=== PATIENT | female | born 1995 | race Two or more races ===

== ENCOUNTER 2024-03-26 10:06 | Emergency (ER) | payer MEDICAID, OTHER ==
[~2024-03-26] VITALS: Ht 157.5 cm; Wt 88.0 kg
[2024-03-26 11:04] LABS: Basophils # (auto) 0.1 10 ^3/uL (0-0.2); Basophils % (auto) 0.6 % (0.0-2.0); Eosinophils # (auto) 0.1 10 ^3/uL (0-0.8); Eosinophils % (auto) 1.1 % (0.0-7.0); Hematocrit 40.2 % (36.0-46.0); Hemoglobin 13.8 g/dL (12.2-16.2); Lymphocytes # (auto) 2.5 10 ^3/uL (0.4-5.4); Lymphocytes % (auto) 21.6 % (10.0-50.0); Mean Corpuscular Hemoglobin 27.7 pg (28.0-32.0); Mean Corpuscular Hgb Conc. 34.3 g/dL (32.0-36.0); Mean Corpuscular Volume 80.7 fL (80.0-100.0); Monocytes # (auto) 0.7 10 ^3/uL (0-1.3); Monocytes % (auto) 6.5 % (0.0-12.0); Neutrophils % (auto) 70.2 % (37.0-80.0); Nucleated Red Blood Cells % 0.2 %; Red Blood Cells 4.98 10^6/uL (4.0-5.20); Red Cell Distribution Width 14.2 % (11.8-14.3); White Blood Cell 11.4 10^3/uL (4.4-10.8)
[2024-03-26 11:16] LABS: Alkaline Phosphatase 57 U/L (46-116); Calcium 10.3 mg/dL (8.7-10.4); Carbon Dioxide 23 mmol/L (20-30); Chloride 102 mmol/L (98-107)
[2024-03-26 11:17] LABS: Albumin 5.2 g/dL (3.2-4.8); Anion Gap 12 (5-15); Aspartate Aminotransferase 11 U/L (13-40); Bilirubin, Total 0.5 mg/dL (0.2-1.0); Glucose 91 mg/dL (74-106); Lipase 64 U/L (12-53); Potassium 3.4 mmol/L (3.5-5.1); Sodium 137 mmol/L (136-145); Total Protein 8.7 g/dL (5.7-8.2)
[2024-03-26 11:20] LABS: Alanine Aminotransferase < 9 U/L (7-40); BUN/Creatinine Ratio 6.5 (10.0-20.0); Blood Urea Nitrogen < 5 mg/dL (9-23)
[2024-03-26 11:22] LABS: Urine Bacteria FEW /hpf (None Seen); Urine Blood 1+ /uL (Negative); Urine Clarity Turbid (Clear); Urine Color Yellow (Yellow); Urine Mucus FEW (None Seen); Urine Protein, UAD 1+ (Negative); Urine Specific Gravity 1.023 (1.001-1.035); Urine Urobilinogen Normal (Negative); Urine WBC 3 /hpf (0 - 5)
[2024-03-26] MEDS ORDERED: CEPH500T PO (13:10)
[2024-03-26] MEDS: LACTATED RINGER'S 1,000 ML IV ONE (13:42)
[2024-03-26 13:43] VITALS: BP 115/75; PULSE 97; RESP 17; TEMP 98; O2SAT 100
== END 2024-03-26 15:18 | disposition home or self-care (01) ==
LOC: ER 10:06
DX: O23.41 Unspecified infection of urinary tract in pregnancy, first trimester (principal); R10.2 Pelvic and perineal pain; O21.8 Other vomiting complicating pregnancy; N39.0 Urinary tract infection, site not specified; Z3A.01 Less than 8 weeks gestation of pregnancy
CPT/HCPCS: 36415; 76801; 76817; 80053; 81001; 83690; 84702; 85025; 96360

== ENCOUNTER 2024-08-04 10:10 | Emergency (ER) | payer MEDICAID ==
[~2024-08-04] VITALS: Ht 157.5 cm; Wt 91.3 kg
[~2024-08-04 10:10] MED LIST: CEPH500T PO
[2024-08-04 12:44] VITALS: BP 123/81; PULSE 97; RESP 16; TEMP 98.1; O2SAT 97
[2024-08-04] MEDS: ACETAMINOPHEN 325 MG TAB PO ONE (13:15)
== END 2024-08-04 13:30 | disposition home or self-care (01) ==
LOC: ER 10:10
DX: M72.2 Plantar fascial fibromatosis (principal); Z79.899 Other long term (current) drug therapy
CPT/HCPCS: 73630; 99283; J7030

== ENCOUNTER → 2024-09-21 | Outpatient (CLI) | payer MEDICAID ==
[2024-09-21 13:40] LABS: Eosinophils # (auto) 0.2 10 ^3/uL (0-0.8)
[2024-09-21 13:41] LABS: Alkaline Phosphatase 108 U/L (46-116); Calcium 9.8 mg/dL (8.7-10.4); Carbon Dioxide 20 mmol/L (20-31); Chloride 106 mmol/L (98-107)
[2024-09-21 13:42] LABS: Alanine Aminotransferase < 9 U/L (7-40); Albumin 4.1 g/dL (3.2-4.8); Anion Gap 10 (5-15); Aspartate Aminotransferase 12 U/L (13-40); BUN/Creatinine Ratio 8.2 (10.0-20.0); Basophils # (auto) 0 10 ^3/uL (0-0.2); Basophils % (auto) 0.2 % (0.0-2.0); Bilirubin, Total 0.3 mg/dL (0.2-1.0); Blood Urea Nitrogen 5 mg/dL (9-23); Eosinophils % (auto) 1.4 % (0.0-7.0); Glucose 111 mg/dL (74-106); Hematocrit 33.5 % (36.0-46.0); Lymphocytes % (auto) 17.1 % (10.0-50.0); Mean Corpuscular Hemoglobin 26.6 pg (28.0-32.0); Mean Corpuscular Hgb Conc. 32.9 g/dL (32.0-36.0); Mean Corpuscular Volume 80.9 fL (80.0-100.0); Monocytes # (auto) 0.9 10 ^3/uL (0-1.3); Monocytes % (auto) 7.4 % (0.0-12.0); Neutrophils # (auto) 8.5 10 ^3/uL (1.6-8.6); Neutrophils % (auto) 73.9 % (37.0-80.0); Platelet Count (auto) 263 10^3/uL (140-450); Potassium 4.1 mmol/L (3.5-5.1); Red Blood Cells 4.14 10^6/uL (4.0-5.20); Sodium 136 mmol/L (136-145); Total Protein 6.9 g/dL (5.7-8.2); White Blood Cell 11.6 10^3/uL (4.4-10.8)
[2024-09-21 13:51] LABS: Urine Bacteria FEW /hpf (None Seen); Urine Blood TRACE /uL (Negative); Urine Clarity Clear (Clear); Urine Color Light-Yellow (Yellow); Urine Protein, UAD Negative (Negative); Urine Specific Gravity 1.011 (1.001-1.035); Urine Urobilinogen Normal (Negative); Urine WBC 3 /hpf (0 - 5)
[2024-09-21 13:54] LABS: Protein, Urine 13.6 mg/dL (1-14)
[2024-09-21 13:57] LABS: Creatinine, Urine 64.34 mg/dL (30.0-125.0); Urine Protein/Creatinine Ratio 0.21
== END | disposition home or self-care (01) ==
LOC: LAB 12:48
PROVIDERS: ATTEND Obstetrics & Gynecology
DX: Z34.83 Encounter for supervision of other normal pregnancy, third trimester (principal)
CPT/HCPCS: 36415; 80053; 81001; 82570; 84156; 85025; 87086

== ENCOUNTER 2024-10-01 15:31 | Emergency (ER) | payer MEDICAID ==
[~2024-10-01] VITALS: Ht 157.5 cm; Wt 97.0 kg
[2024-10-01 15:39] VITALS: BP 110/67; PULSE 137; RESP 16; O2SAT 99
[2024-10-01] MEDS ORDERED: PREN-96 PO (17:10)
== END 2024-10-01 16:23 | disposition home or self-care (01) ==
LOC: ER 15:31
DX: O26.893 Other specified pregnancy related conditions, third trimester (principal); R10.2 Pelvic and perineal pain; Z3A.34 34 weeks gestation of pregnancy; Z79.899 Other long term (current) drug therapy

== ENCOUNTER 2024-10-01 15:58 | Observation (INO) | payer MEDICAID ==
[~2024-10-01] VITALS: Ht 157.5 cm; Wt 92.5 kg
[2024-10-01] MEDS ORDERED: PREN-96 PO (17:10)
== END 2024-10-01 17:18 | disposition home or self-care (01) ==
LOC: LDRP 15:58
PROVIDERS: ADMIT Obstetrics & Gynecology; ATTEND Obstetrics & Gynecology
DX: O26.893 Other specified pregnancy related conditions, third trimester (principal); R10.9 Unspecified abdominal pain; Z3A.34 34 weeks gestation of pregnancy; Z79.899 Other long term (current) drug therapy; Z98.890 Other specified postprocedural states
CPT/HCPCS: 59025; 76815; 76817; 81002; 94760; G0378

== ENCOUNTER → 2024-10-13 | Outpatient (CLI) | payer MEDICAID ==
[~2024-10-13] MED LIST changes: +PREN-96 PO
[2024-10-13 09:28] LABS: Basophils # (auto) 0 10 ^3/uL (0-0.2); Basophils % (auto) 0.3 % (0.0-2.0); Eosinophils # (auto) 0.2 10 ^3/uL (0-0.8); Eosinophils % (auto) 1.7 % (0.0-7.0); Hematocrit 32.1 % (36.0-46.0); Hemoglobin 10.5 g/dL (12.2-16.2); Lymphocytes # (auto) 1.9 10 ^3/uL (0.4-5.4); Lymphocytes % (auto) 18.2 % (10.0-50.0); Mean Corpuscular Hemoglobin 25.8 pg (28.0-32.0); Mean Corpuscular Hgb Conc. 32.8 g/dL (32.0-36.0); Mean Corpuscular Volume 78.6 fL (80.0-100.0); Monocytes # (auto) 0.9 10 ^3/uL (0-1.3); Monocytes % (auto) 8.8 % (0.0-12.0); Neutrophils # (auto) 7.5 10 ^3/uL (1.6-8.6); Platelet Count (auto) 243 10^3/uL (140-450); Red Blood Cells 4.08 10^6/uL (4.0-5.20); Red Cell Distribution Width 14.9 % (11.8-14.3); White Blood Cell 10.6 10^3/uL (4.4-10.8)
--- NOTE | 2024-10-13 12:46 | DVHDS2 ---
Physician Discharge Progress N Final Diagnosis: labor check Operations or Procedures: Operations or Procedures nst,sono Condition on Discharge: Good Disposition: Home Discharge Instructions: Diet: Consistent carbohydrate Activity: No Restrictions, As Tolerated Medications: na Follow Up Care: Specialist: 3d Discharge Statement: "Patient was advised to return to the ER or call 911 if any headaches, dizziness, shortness of breath, chest pain, abdominal pain, bleeding, fevers, or worsening of medical condition. Patient was counseled about treatment plan, medications, possible side effects, patientverbalized understanding. All questions were answered to the best of my ability. This discharge took greater then 30 minutes in planning, reviewing documenta tion, counseling the patient, and discussing with other team members." AMARJIT RASMUSSEN DO Oct 13, 2024 12:46
[2024-10-14 08:06] LABS: RPR Non Reactive (Non Reactive)
[2024-10-15 06:07] LABS: Chlamydia Trachomatis, NAA Negative (Negative); Neisseria gonorrhoeae, NAA Negative (Negative)
== END | disposition home or self-care (01) ==
LOC: LAB 09:04
PROVIDERS: ATTEND Obstetrics & Gynecology
DX: Z34.00 Encounter for supervision of normal first pregnancy, unspecified trimester (principal)
CPT/HCPCS: 36415; 85025; 86592

== ENCOUNTER 2024-11-03 10:35 | Inpatient (IN) | payer MEDICAID ==
[~2024-11-03] VITALS: Ht 160 cm; Wt 103.0 kg
[2024-11-03] MEDS ORDERED: DERMOPLAST 60ML BOTTLE TOP PRN (11:15)
[2024-11-03] MEDS ORDERED: LIDOCAINE 2%HCL (LOCAL ANESTH.) INJ 20ML MDV IJ PRN (11:15)
[2024-11-03] MEDS ORDERED: ONDANSETRON HCL 4 MG/2 ML VIAL IV PRN (11:15)
[2024-11-03] MEDS ORDERED: BUTORPHANOL TARTRATE 2 MG/1 ML VIAL IV PRN ×2 (11:15)
[2024-11-03] MEDS ORDERED: PHISODERM TOP SOLN 240ML BTL TOP PRN (11:15)
[2024-11-03] MEDS ORDERED: WITCH HAZEL-GLYCERIN PAD TOP PRN (11:15)
[2024-11-03] MEDS: miSOPROStol 50 MCG per PRE-CUT 1/2 TAB PO PRN (12:36)
[2024-11-03] MEDS: LACTATED RINGER'S 1,000 ML IV SCH (12:37)
--- NOTE | 2024-11-03 12:48 | DVHHP2 ---
OB CC & HPI Date Date of Admission: Nov 03, 2024 Patient Identification: : 2 Para: 1 EDC: Nov 08, 2024 EGA: 39.2wks Chief Complaints: Reason for admission: induction of labor Indication for induction: medical complication (preeclampsia) History of Present Complaints 29yo IUP@39.2wks presents for IOL for preeclampsia. Denies UCs/LOF/VB/KURTZ/vision changes/RUQ pain. Endorses +FM. PNC: Routine PNC at [facility] OB, adequate visits, PNC complicated by iron deficiency anemia. GTT wnl, dating based on 24wk sono, GBS negative. OB hx: x1, uncomplicated Past Medical History Cardiac: No pertinent Hx Pulmonary: No pertinent Hx Central Nervous System: No pertinent Hx GI: No pertinent Hx Hemotology/Oncology: No pertinent Hx Hepatobiliary: No pertinent Hx Psychiatric: No pertinent Hx Musculoskeletal: No pertinent Hx Rheumotologic: No pertinent Hx Infectious Disease: No peritnent Hx ENT: No pertinent Hx Renal/: No pertinent Hx Endocrine: No pertinent Hx Dermatology: No pertinent Hx Past Surgical History: No pertinent Hx OB History OB History Care: Good Care Ultrasounds: Normal mid trimester US Obstetrical Complications: Pre-eclampsia Medical Complications: None Allergies: Coded Allergies: NO KNOWN ALLERGIES (Unverified , 08/04/24) Home Meds Active Scripts Cephalexin Monohydrate (Cephalexin) 500 Mg Tab, 1 TAB PO TID for 7 Days, #21 TAB Prov:MELANIE STEVENSON DO 03/26/24 Reported Medications Vit W/ Ferrous Fumara ( One Daily) Daily Tab, 1 TAB PO DAILY, #90 TAB 3 Refills 10/01/24 Current Medications Current Medications Medications (Trade) Dose Ordered Sig/Dali Route PRN Reason Start Time Stop Time Status Last Admin Lactated Ringer's 1,000 ml @ 125 mls/hr Q8H IV 11/03/24 11:15 11/03/24 12:37 Ananda Vallejo (Tucks) 1 pad PRN PRN TOP PERINEAL AREA DISCOMFORT 11/03/24 11:15 Sodium Lauryl Sulfate (Phisoderm) 240 ml PRN PRN TOP PERINEAL AREA DISCOMFORT 11/03/24 11:15 Benzocaine (Dermoplast) 1 applic PRN PRN TOP PERINEAL AREA DISCOMFORT 11/03/24 11:15 Butorphanol Tartrate (Stadol Injection) 1 mg Q4HPRN PRN IV MODERATE PAIN (4-6 PAIN SCALE) 11/03/24 11:15 Butorphanol Tartrate (Stadol Injection) 2 mg Q4HPRN PRN IV SEVERE PAIN (7-10 PAIN SCALE) 11/03/24 11:15 Misoprostol (Cytotec) 50 mcg Q4HPRN PRN PO CERVICAL RIPENING 11/03/24 11:15 11/03/24 12:36 Lidocaine HCl (Xylocaine) 20 ml ONCE PRN IJ PERINEAL AREA DISCOMFORT 11/03/24 11:15 Ondansetron HCl (Zofran) 4 mg Q4HPRN PRN IV NAUSEA / VOMITING 11/03/24 11:15 Family & Social History Family/Social History Past Family/Social History: denies Blood Type: O+ Rubella: immune RPR/VDRL: Negative GBS Status: Negative HBsAG: Negative Review of Systems Constitutional: No symptom reported Ears, Nose, & Throat: No symptom reported Eyes: No symptom reported Pulmonary/Respiratory: No symptom reported Cardiovascular: No symptom reported Gastrointestinal: No symptom reported Genitourinary: No symptom reported Musculoskeletal: No symptom reported Skin: No symptom reported Psychiatric: No symptom reported Endocrine: No symptom reported Hemotologic/Lymphatic: No symptom reported OB Admission Exam Physical Exam Vitals: VSS EFW in office today: 8lbs, vertex HEENT: TMs Normal, Fontanelles Normal, Nasal Mucosa Normal, Eyes non-injected, Oropharynx Normal, PERRLA, Moist Membranes, EOMI Heart: Rhythm Normal Lungs: Clear Abdomen: Gravid Extremities: Normal Reflexes: Normal Cervical Dilatation: 2cm Effacement: 50% Station: -2 Membranes: Intact Heart Rate: 140's Accelerations: Accelerations Present Decelerations: No Decelerations Usp Variability: Average (6-25) Contractions on Admission: >10 Minutes Apart Intensity: Mild OB Plan Plan Admitting Diagnosis: Induction of labor for preeclampsia Plan: Induction Induction Methd: Misoprostol protocol Other Plan: A: 29yo IUP@39.2wks Induction of Labor Preeclampsia Category I EFM Intact Membranes GBS negative P: Admit to L&D Informed consent obtained Discussed risks, benefits, alternatives of IOL for preeclampsia with pt. Pt consents to IOL with PO cytotec. monitoring per order Routine labs ordered Pain mgmt PRN Frequent position changes in and out of bed encouraged Limit SVE unless necessary Intrauterine resuscitation PRN Anticipate Dr. Mckoy consulted, agrees with POC. PATRICK is co-managing care with Dr. Mckoy. SAIDA FLORES CNM Nov 03, 2024 12:48
[2024-11-03 12:55] LABS: Basophils # (auto) 0 10 ^3/uL (0-0.2); Basophils % (auto) 0.3 % (0.0-2.0); Eosinophils # (auto) 0.1 10 ^3/uL (0-0.8); Eosinophils % (auto) 0.8 % (0.0-7.0); Hematocrit 32.3 % (36.0-46.0); Hemoglobin 10.3 g/dL (12.2-16.2); Lymphocytes # (auto) 1.6 10 ^3/uL (0.4-5.4); Lymphocytes % (auto) 16.2 % (10.0-50.0); Mean Corpuscular Hemoglobin 24.8 pg (28.0-32.0); Mean Corpuscular Hgb Conc. 31.8 g/dL (32.0-36.0); Monocytes # (auto) 0.8 10 ^3/uL (0-1.3); Monocytes % (auto) 8.1 % (0.0-12.0); Neutrophils # (auto) 7.5 10 ^3/uL (1.6-8.6); Neutrophils % (auto) 74.6 % (37.0-80.0); Nucleated Red Blood Cells % 0.1 %; Platelet Count (auto) 215 10^3/uL (140-450); Red Blood Cells 4.14 10^6/uL (4.0-5.20); Red Cell Distribution Width 15.8 % (11.8-14.3)
[2024-11-03 13:07] LABS: INR 0.96 (0.9-1.15); Partial Thromboplastin Time 27.6 SEC (24.5-34.5); Prothrombin Time 10.2 sec (9.3-11.8)
[2024-11-03 13:08] LABS: Albumin 3.6 g/dL (3.2-4.8); Alkaline Phosphatase 163 U/L (46-116); Anion Gap 10 (5-15); Aspartate Aminotransferase 15 U/L (13-40); BUN/Creatinine Ratio 10.9 (10.0-20.0); Blood Urea Nitrogen 7 mg/dL (9-23); Calcium 9.4 mg/dL (8.7-10.4); Carbon Dioxide 21 mmol/L (20-31); Chloride 105 mmol/L (98-107); Glucose 71 mg/dL (74-106); Sodium 136 mmol/L (136-145)
[2024-11-03 13:09] LABS: Alanine Aminotransferase < 9 U/L (7-40); Bilirubin, Total 0.3 mg/dL (0.2-1.0); Total Protein 6.2 g/dL (5.7-8.2)
[2024-11-03 13:23] LABS: Urine Bacteria FEW /hpf (None Seen); Urine Blood TRACE /uL (Negative); Urine Clarity Clear (Clear); Urine Color Light-Yellow (Yellow); Urine Protein, UAD 1+ (Negative); Urine Urobilinogen Normal (Negative); Urine WBC 2 /hpf (0 - 5); Urine pH 6.5 (5.0-9.0)
[2024-11-03 13:41] LABS: Protein, Urine 91.2 mg/dL (1-14)
[2024-11-03 13:44] LABS: Amphetamine Screen, Urine Neg (NEGATIVE); Barbiturate Scree,Urine Neg (NEGATIVE); Benzodiazephine Screen, Urine Neg (NEGATIVE); Cocaine Screen, Urine Neg (NEGATIVE); Creatinine, Urine 66.68 mg/dL (30.0-125.0); Urine Protein/Creatinine Ratio 1.37
[2024-11-03 13:45] LABS: Cannabinoid Screen, Urine Neg (NEGATIVE); Opiate Scree,Urine Neg (NEGATIVE); Phencyclidine Screen, Urine Neg (NEGATIVE)
[2024-11-03 14:30] VITALS: BP 91/77; PULSE 113; RESP 18; TEMP 98.2; O2SAT 98
--- NOTE | 2024-11-03 14:36 | DVHPN2 ---
Chief Complaints Patient reports: No new complaints Nursing reports: No new complaints Objective Medications Current Medications Medications (Trade) Dose Ordered Sig/Dali Route PRN Reason Start Time Stop Time Status Last Admin Benzocaine (Dermoplast) 1 applic PRN PRN TOP PERINEAL AREA DISCOMFORT 11/03/24 11:15 Butorphanol Tartrate (Stadol Injection) 1 mg Q4HPRN PRN IV MODERATE PAIN (4-6 PAIN SCALE) 11/03/24 11:15 Butorphanol Tartrate (Stadol Injection) 2 mg Q4HPRN PRN IV SEVERE PAIN (7-10 PAIN SCALE) 11/03/24 11:15 Lactated Ringer's 1,000 ml @ 125 mls/hr Q8H IV 11/03/24 11:15 11/03/24 12:37 Lidocaine HCl (Xylocaine) 20 ml ONCE PRN IJ PERINEAL AREA DISCOMFORT 11/03/24 11:15 Misoprostol (Cytotec) 50 mcg Q4HPRN PRN PO CERVICAL RIPENING 11/03/24 11:15 11/03/24 12:36 Ondansetron HCl (Zofran) 4 mg Q4HPRN PRN IV NAUSEA / VOMITING 11/03/24 11:15 Sodium Lauryl Sulfate (Phisoderm) 240 ml PRN PRN TOP PERINEAL AREA DISCOMFORT 11/03/24 11:15 Witch Genevieve (Tucks) 1 pad PRN PRN TOP PERINEAL AREA DISCOMFORT 11/03/24 11:15 Others ve-2cm/50/-2 Studies Laboratory Tests 11/03/24 11:50 Test 11/03/24 11:50 Range/Units Serum Glucose 71 L 74-106 mg/dL Ass/Plan Assessment iol for pih Plan rec one cytotec AMARJIT RASMUSSEN DO Nov 03, 2024 14:36
[2024-11-03] MEDS: ROPIVACAINE HCL 200 ML ONE (16:41)
[2024-11-03] MEDS: ePHEDrine SULFATE 50 MG/ML AMP IV ONE (16:45)
[2024-11-03] MEDS: NALOXONE HCL 0.4 MG/ML VIAL IV ONE (16:45)
[2024-11-03] MEDS: LACTATED RINGER'S 1,000 ML IV ONE (16:45)
[2024-11-04] MEDS: LACT. RINGERS/OXYTOCIN 20UNITS 1,000 ML IV SCH (03:58)
[2024-11-04 05:08] LABS: RPR Non Reactive (Non Reactive)
--- NOTE | 2024-11-04 07:33 | DVHPN2 ---
Chief Complaints Patient reports: No new complaints Nursing reports: No new complaints Objective Medications Current Medications Medications (Trade) Dose Ordered Sig/Dali Route PRN Reason Start Time Stop Time Status Last Admin Benzocaine (Dermoplast) 1 applic PRN PRN TOP PERINEAL AREA DISCOMFORT 11/03/24 11:15 Butorphanol Tartrate (Stadol Injection) 1 mg Q4HPRN PRN IV MODERATE PAIN (4-6 PAIN SCALE) 11/03/24 11:15 Butorphanol Tartrate (Stadol Injection) 2 mg Q4HPRN PRN IV SEVERE PAIN (7-10 PAIN SCALE) 11/03/24 11:15 Lactated Ringer's 1,000 ml @ 125 mls/hr Q8H IV 11/03/24 11:15 11/03/24 12:37 Lidocaine HCl (Xylocaine) 20 ml ONCE PRN IJ PERINEAL AREA DISCOMFORT 11/03/24 11:15 Magnesium Sulfate 1,000 ml @ 50 mls/hr Q20H IV 11/04/24 06:00 Misoprostol (Cytotec) 50 mcg Q4HPRN PRN PO CERVICAL RIPENING 11/03/24 11:15 11/03/24 12:36 Ondansetron HCl (Zofran) 4 mg Q4HPRN PRN IV NAUSEA / VOMITING 11/03/24 11:15 Oxytocin 1,000 ml @ 6 ml/hr Q24H IV 11/04/24 02:30 11/04/24 03:58 Sodium Lauryl Sulfate (Phisoderm) 240 ml PRN PRN TOP PERINEAL AREA DISCOMFORT 11/03/24 11:15 Witch Genevieve (Tucks) 1 pad PRN PRN TOP PERINEAL AREA DISCOMFORT 11/03/24 11:15 Others ve-4cm/60/-2 Studies Laboratory Tests 11/03/24 11:50 Test 11/03/24 11:50 Range/Units Serum Glucose 71 L 74-106 mg/dL Ass/Plan Assessment iol for pih Plan cont with pitocin start mg in active labor AMARJIT RASMUSSEN DO Nov 04, 2024 07:33
[2024-11-04] MEDS: MAGNESIUM SULFATE 100 ML IV ONE (09:39)
[2024-11-04] MEDS: MAGNESIUM SULFATE 40MG/ML 1,000 ML IV SCH (09:55)
[2024-11-04] MEDS: LORazepam 2MG/ML-1ML VIAL IV ONE (10:00)
--- NOTE | 2024-11-04 10:45 | LDN2 ---
Labor and Delivery Note Date 11/04/24 Age 29 2 Para 2 EDC 12-8 EGA 39wks Diagnosis induction of labor for pih Vaginal Delivery: VTX Vacuum Assisted: No Placenta: Spontaneous Sex: Female Apgars 8-8 Nuchal Cord Transected: Yes Amniotic Fluid: Clear, Thin Anesthesia epidural Episiotomy: No Extension: Yes (1st dge perineal lac) Repaired with 2-0 chromic EBL 300ml Labs Blood Bank 11/03/24 11:50: Blood Type O POSITIVE Complications none Conditions stable Comments/Significant Med Emre spec exam no cxal lac, AMARJIT RASMUSSEN DO Nov 04, 2024 10:45
[2024-11-04] MEDS: LACT. RINGERS/OXYTOCIN 20UNITS 500 ML IV ONE ×2 (10:57)
[2024-11-04] MEDS ORDERED: ONDANSETRON ODT 4 MG TAB PO PRN (11:15)
[2024-11-04 12:45] VITALS: RESP 18
[2024-11-04] MEDS: ACETAMINOPHEN 325 MG TAB PO PRN (13:24)
[2024-11-04 14:30] VITALS: BP 91/77; PULSE 113; RESP 18; TEMP 98.2; O2SAT 98
--- NOTE | 2024-11-04 16:19 | DVHINCON2 ---
Date Seen: Nov 04, [address] RASMUSSEN Allergies: Coded Allergies: NO KNOWN ALLERGIES (Unverified , 08/04/24) Home Meds Reported Medications Vit W/ Ferrous Fumara ( One Daily) Daily Tab, 1 TAB PO DAILY, #90 TAB 3 Refills 10/01/24 Current Medications Current Medications Medications (Trade) Dose Ordered Sig/Dali Route PRN Reason Start Time Stop Time Status Last Admin Oxytocin 1,000 ml @ 6 ml/hr Q24H IV 11/04/24 02:30 11/04/24 03:58 Magnesium Sulfate 1,000 ml @ 50 mls/hr Q20H IV 11/04/24 06:00 11/04/24 09:55 Ibuprofen (Motrin Tablet) 600 mg Q6HP PRN PO MODERATE PAIN (4-6 PAIN SCALE) 11/04/24 11:15 Acetaminophen (Tylenol Tablet) 650 mg Q4HP PRN PO MILD PAIN (1-3 PAIN SCALE) 11/04/24 11:15 11/04/24 13:24 Ondansetron HCl (Zofran Po) 4 mg Q4HPRN PRN PO NAUSEA / VOMITING 11/04/24 11:15 Vital Signs Vital Signs Date Time Temp Pulse Resp B/P (MAP) Pulse Ox O2 Delivery O2 Flow Rate FiO2 11/04/24 12:45 18 Room Air 11/03/24 14:30 98.2 113 91/77 (82) 98 98.2 Labs/Diagnostic Data Labs Test 11/04/24 15:27 11/03/24 11:50 11/03/24 10:35 Range/Units Magnesium Lvl (Mg Sulfate Therapy) 2.04 L 4.0-7.1 mg/dL White Blood Count 10.0 4.4-10.8 10^3/uL Red Blood Count 4.14 4.0-5.20 10^6/uL Hemoglobin 10.3 L 12.2-16.2 g/dL Hematocrit 32.3 L 36.0-46.0 % Mean Corpuscular Volume 78.0 L 80.0-100.0 fL Mean Corpuscular Hemoglobin 24.8 L 28.0-32.0 pg Mean Corpuscular Hemoglobin Concent 31.8 L 32.0-36.0 g/dL Red Cell Distribution Width 15.8 H 11.8-14.3 % Platelet Count 215 140-450 10^3/uL Mean Platelet Volume 9.0 6.9-10.8 fL Neutrophils (%) (Auto) 74.6 37.0-80.0 % Lymphocytes (%) (Auto) 16.2 10.0-50.0 % Monocytes (%) (Auto) 8.1 0.0-12.0 % Eosinophils (%) (Auto) 0.8 0.0-7.0 % Basophils (%) (Auto) 0.3 0.0-2.0 % Neutrophils # (Auto) 7.5 1.6-8.6 10 ^3/uL Lymphocytes # (Auto) 1.6 0.4-5.4 10 ^3/uL Monocytes # (Auto) 0.8 0-1.3 10 ^3/uL Eosinophils # (Auto) 0.1 0-0.8 10 ^3/uL Basophils # (Auto) 0 0-0.2 10 ^3/uL Nucleated Red Blood Cells 0.1 % Prothrombin Time 10.2 9.3-11.8 sec Prothrombin Time INR 0.96 0.9-1.15 Activated Partial Thromboplast Time 27.6 24.5-34.5 SEC Sodium Level 136 136-145 mmol/L Potassium Level 4.0 3.5-5.1 mmol/L Chloride Level 105 98-107 mmol/L Carbon Dioxide Level 21 20-31 mmol/L Anion Gap 10 5-15 Blood Urea Nitrogen 7 L 9-23 mg/dL Creatinine 0.64 0.550-1.02 mg/dL Glomerular Filtration Rate Calc 123 >90 mL/min BUN/Creatinine Ratio 10.9 10.0-20.0 Serum Glucose 71 L 74-106 mg/dL Uric Acid 11.3 H 3.1-7.8 mg/dL Calcium Level 9.4 8.7-10.4 mg/dL Total Bilirubin 0.3 0.2-1.0 mg/dL Aspartate Amino Transferase (AST) 15 13-40 U/L Alanine Aminotransferase (ALT) < 9 7-40 U/L Alkaline Phosphatase 163 H 46-116 U/L Total Protein 6.2 5.7-8.2 g/dL Albumin 3.6 3.2-4.8 g/dL Rapid Plasma Reagin Non reactive Non Reactive Hepatitis C Antibody Negative Negative Urine Color Light-yellow Yellow Urine Clarity Clear Clear Urine pH 6.5 5.0-9.0 Urine Specific Axson 1.010 1.001-1.035 Urine Protein 1+ H Negative Urine Ketones Negative Negative Urine Blood Trace H Negative /uL Urine Nitrite Negative Negative Urine Bilirubin Negative Negative Urine Urobilinogen Normal Negative mg/dL Urine Leukocyte Esterase 2+ Negative /uL Urine RBC 2 0 - 4 /hpf Urine WBC 2 0 - 5 /hpf Urine Squamous Epithelial Cells Few <5 /hpf Urine Bacteria Few H None Seen /hpf Urine Creatinine 66.68 30.0-125.0 mg/dL Urine Protein/Creatinine Ratio 1.37 Urine Glucose Normal Normal mg/dL Urine Total Protein 91.2 H 1-14 mg/dL Urine Opiates Screen Neg NEGATIVE Urine Fentanyl Screen Neg NEGATIVE Urine Barbiturates Screen Neg NEGATIVE Urine Phencyclidine Screen Neg NEGATIVE Urine Amphetamines Screen Neg NEGATIVE Urine Benzodiazepines Screen Neg NEGATIVE Urine Cocaine Screen Neg NEGATIVE Urine Cannabinoids Screen Neg NEGATIVE Assessment SEE DICTATED NOTE Plan discussed with: Patient Date of Service: Nov 04, 2024 Billing Provider: VALERIY VICKERS MD Common Visit Codes: [id number] INP/OBS CARE (HIGH) VALERIY VICKERS MD Nov 04, 2024 16:19
[2024-11-04 16:53] LABS: Free T3 2.15 pg/mL (2.3-4.2); Free T4 (Free Thyroxine) 0.7 ng/dL (0.89-1.76)
[2024-11-04 19:00] VITALS: BP 135/75; PULSE 93; RESP 18; TEMP 98.2; O2SAT 99
[2024-11-04 22:30] VITALS: BP 123/62; PULSE 85; RESP 16; TEMP 98.1; O2SAT 99
--- NOTE | 2024-11-04 23:07 | DVHINCON2 ---
INTERNAL MEDICINE CONSULT HISTORY OF PRESENT ILLNESS: The patient is a 29-year-old lady who was admitted for and delivery. The patient around the peripartum period was noted to be tachycardic. The patient, however, at this time is asymptomatic. No chest pain or shortness of breath. No nausea or vomiting. REVIEW OF SYSTEMS: The review of rest of systems are otherwise currently negative. PAST MEDICAL HISTORY: The patient has baseline tachycardia with a heart rate usually in the 110-115. She has questionable history of rheumatic fever. MEDICATIONS: She takes no medicine on a regular basis. ALLERGIES: No known drug allergies. SOCIAL HISTORY: Denies smoking or alcohol. FAMILY HISTORY: Negative. PHYSICAL EXAMINATION: GENERAL: The patient is awake, alert. VITAL SIGNS: Temperature of 98.2, pulse 113 per minute, blood pressure 91/77. SHEENT: Unremarkable. NECK: There is no JVD. No pedal edema. LUNGS: Equal bilaterally. No added sounds. CARDIOVASCULAR SYSTEM: S1, S2 is regular. There is tachycardia. ABDOMEN: Soft. There is no organomegaly. NEUROLOGIC: Nonfocal. MUSCULOSKELETAL: Normal. ASSESSMENT AND PLAN: * Tachycardia for which the patient's T3, T4 and TSH will be checked as well as an echocardiogram. * Morbid obesity. * Status post with delivery. Jacob Le MD JLRohith/HEM TID: [id number] RECEIPT: [id number]
[2024-11-05 03:00] VITALS: BP 99/59; PULSE 73; RESP 18; TEMP 98.4; O2SAT 98
[2024-11-05] MEDS: IBUPROFEN 600 MG TAB PO PRN (03:04)
[2024-11-05 07:00] VITALS: BP 95/51; PULSE 63; RESP 18; TEMP 97.7; O2SAT 98
--- NOTE | 2024-11-05 07:02 | DVHPN2 ---
Objective Vitals Vital Signs Date Time Temp Pulse Resp B/P (MAP) Pulse Ox O2 Delivery O2 Flow Rate FiO2 11/05/24 03:00 98.4 73 18 99/59 (72) 98 98.4 11/04/24 18:45 Room Air Medications Current Medications Medications (Trade) Dose Ordered Sig/Dali Route PRN Reason Start Time Stop Time Status Last Admin Acetaminophen (Tylenol Tablet) 650 mg Q4HP PRN PO MILD PAIN (1-3 PAIN SCALE) 11/04/24 11:15 11/04/24 22:18 Ibuprofen (Motrin Tablet) 600 mg Q6HP PRN PO MODERATE PAIN (4-6 PAIN SCALE) 11/04/24 11:15 11/05/24 03:04 Ondansetron HCl (Zofran Po) 4 mg Q4HPRN PRN PO NAUSEA / VOMITING 11/04/24 11:15 General: Normal Lungs: Normal Cardiovascular: Normal Extremities: Normal Studies Laboratory Tests 11/03/24 11:50 Test 11/03/24 11:50 Range/Units Serum Glucose 71 L 74-106 mg/dL Ass/Plan Assessment s/p Plan dc home fu in [facility] AMARJIT RASMUSSEN Nov 05, 2024 07:02
--- NOTE | 2024-11-05 07:03 | DVHDS2 ---
Obstetrics Discharge Summary Obstetrics Discharge Summary Date of Admission: Nov 03, 2024 Date of Discharge: Nov 05, 2024 Reason For Admission: Induction of Labor Procedures: NST Intrapartum Procedures: Spontaneous vaginal deliv Procedures: None Operative Complicat: Laceration (Perineal), Pelvic Infection Discharge Diagnosis: Term -Delivered, Preeclampsia Discharge Information: Activity (Other), Diet (Other), Medications (None), Instructions (Routine), Discharge to (Home), Discarge date (11-05) AMARJIT RASMUSSEN DO Nov 05, 2024 07:02
[2024-11-05 09:05] LABS: Basophils # (auto) 0 10 ^3/uL (0-0.2); Monocytes # (auto) 0.7 10 ^3/uL (0-1.3); Neutrophils # (auto) 6.4 10 ^3/uL (1.6-8.6); Platelet Count (auto) 174 10^3/uL (140-450)
[2024-11-05 09:07] LABS: Basophils % (auto) 0.3 % (0.0-2.0); Eosinophils # (auto) 0.1 10 ^3/uL (0-0.8); Eosinophils % (auto) 1.6 % (0.0-7.0); Hematocrit 27.5 % (36.0-46.0); Hemoglobin 8.8 g/dL (12.2-16.2); Mean Corpuscular Volume 78.1 fL (80.0-100.0); Monocytes % (auto) 7.8 % (0.0-12.0); Neutrophils % (auto) 68.3 % (37.0-80.0); Red Blood Cells 3.52 10^6/uL (4.0-5.20); Red Cell Distribution Width 16.1 % (11.8-14.3); White Blood Cell 9.3 10^3/uL (4.4-10.8)
[2024-11-05 09:09] LABS: Potassium 3.9 mmol/L (3.5-5.1); Sodium 140 mmol/L (136-145)
[2024-11-05 09:10] LABS: Anion Gap 10 (5-15); Carbon Dioxide 23 mmol/L (20-31)
[2024-11-05 09:11] LABS: Calcium 9.4 mg/dL (8.7-10.4)
[2024-11-05 09:14] LABS: Chloride 107 mmol/L (98-107)
[2024-11-05 09:15] LABS: BUN/Creatinine Ratio 11.8 (10.0-20.0); Blood Urea Nitrogen 9 mg/dL (9-23); Glucose 80 mg/dL (74-106)
--- NOTE | 2024-11-05 09:41 | DVHSR ---
APPROVED REPORT EXAM: Two-dimensional and M-mode echocardiogram with Doppler and color Doppler. Blood Pressure: 91/77 mmHg INDICATION H/O rheumatic heart diease RISK FACTORS Height: 63, Weight: 227 DIMENSIONS LVDd (3.8-5.7cm)LA (2D)4.2 (1.9-4.0cm)Aortic Root3.7 (2.0-3.7cm) LVDs (2.5-4.0cm)LA (MM) (1.9-4.0cm)Aortic Cusp Exc1.9 (1.5-2.0cm) EF (%) 53.0 (55-70%)Rt. Atrium3.9 (1.9-4.0cm)Asc. Aorta cm Mitral Valve MitralMitral Stenosis E wave1.26m/sMV Mean GR.mmHg E/A ratio0.02D MVAcm2 Aortic Valve Aortic ValveAortic Stenosis V10.87m/Lucas Mean GR.4mmHg V21.46m/Lucas Peak GR.9mmHg LVOT Diameter2.5 (1.8-2.4cm)Doppler AVA2.92cm2 Pulmonic Valve V21.08m/s Other Information Technically limited study due to body habitus and patient position. Conclusion Normal left ventricular size and dimension. Normal left ventricular systolic function estimated ejec tion fraction 55%. Normal diastolic function. Normal right ventricular size and dimension. Normal right ventricular systolic function. Normal biatrial size and dimension. Normal aortic valve structure and function. Normal mitral valve structure and function. Normal tricuspid valve structure and function. The pulmonary valve is grossly normal. No pericardial effusion.
--- NOTE | 2024-11-05 10:06 | DVHPN2 ---
Progress Note Date Seen: Nov 05, 2024 Medical Necessity Reason Pt with a Central, PICC or Fol: No Subjective Patient reports: No new complaints Review of Systems: HEENT:Normal, CVS:Normal, RESPIRATORY:Normal, GI:Normal, :Normal, MSK:Normal, NEURO:Normal Objective vital signs Vital Sign Date Time Temp Pulse Resp B/P (MAP) Pulse Ox O2 Delivery O2 Flow Rate FiO2 11/05/24 07:17 Room Air 11/05/24 07:00 97.7 63 18 95/51 (66) 98 97.7 Total Intake and Output 11/04/24 11/04/24 11/05/24 15:00 23:00 07:00 Output Total 1200 ml 1000 ml Balance -1200 ml -1000 ml medications Current Medications Medications Dose Ordered Sig/Dali Route Start Time Stop Time Status Last Admin Dose Admin Lactated Ringer's 1,000 ml @ 125 mls/hr Q8H IV 11/03/24 11:15 11/03/24 12:37 125 MLS/HR Witch Genevieve 1 pad PRN PRN TOP 11/03/24 11:15 Sodium Lauryl Sulfate 240 ml PRN PRN TOP 11/03/24 11:15 Benzocaine 1 applic PRN PRN TOP 11/03/24 11:15 Lidocaine HCl 20 ml ONCE PRN IJ 11/03/24 11:15 Cancel Ondansetron HCl 4 mg Q4HPRN PRN IV 11/03/24 11:15 Magnesium Sulfate 1,000 ml @ 50 mls/hr Q20H IV 11/04/24 06:00 11/04/24 09:55 50 MLS/HR Ibuprofen 600 mg Q6HP PRN PO 11/04/24 11:15 11/05/24 03:04 600 MG Acetaminophen 650 mg Q4HP PRN PO 11/04/24 11:15 11/04/24 22:18 650 MG Ondansetron HCl 4 mg Q4HPRN PRN PO 11/04/24 11:15 Examination: GENERAL:Normal, HEENT:Normal, NECK:Normal, LUNGS:Normal, CVS:Normal, ABDOMEN:Normal, MSK:Normal, SKIN:Normal, NEURO:Normal, :Normal laboratory and microbiology Laboratory Tests 11/05/24 08:00 Test 11/05/24 08:00 Range/Units Serum Glucose 80 74-106 mg/dL Problem List/Assessment/Plan Problem List/Assessment/Plan * Tachycardia : echo ok, resolved * Morbid obesity. * Status post with delivery. Plan discussed with: Patient My Orders My Orders Orders - VALERIY VICKERS MD Procedure Category Date Status Time Echo 2d Mode Cardiac US 11/04/24 Resulted DOP 16:21 Date of Service: Nov 05, 2024 Billing Provider: VALERIY VICKERS MD Common Visit Codes: [id number] INP/OBS CARE(HIGH) VALERIY VICKERS MD Nov 05, 2024 10:06
[2024-11-05 11:00] VITALS: BP 127/68; PULSE 96; RESP 18; TEMP 97.5; O2SAT 98
--- NOTE | 2024-11-22 12:10 | ECG ---
[facility] Test Date: 2024-11-04 Test Time: 04:54:48 Pat Name: BHUPINDER COOPER Department: Room: [facility] A Gender: F Cafeteria Helper: MARGO : 1995 Requested By: AMARJIT RASMUSSEN Order Number: [id number] Reading MD: Tanya Combs Measurements Intervals [place] Rate: 119 P: 39 [place]: 152 QRS: 34 QRSD: 70 T: 10 QT: 310 QTc: 436 Interpretive Statements Sinus tachycardia Cannot rule out Anterior infarct , age undetermined Electronically Signed On 11-23-2024 15:34:39 PST by Tanya Combs Please click the below link to view image of tracing.
== END 2024-11-05 12:42 | disposition home or self-care (01) | DRG 560 ==
LOC: LDRP 10:35
PROVIDERS: ADMIT Obstetrics & Gynecology; ATTEND Obstetrics & Gynecology
PROC: 10E0XZZ Delivery of Products of Conception, External Approach (ICD-10-PCS; principal; 2024-11-04)
PROC: 3E0DXGC Introduction of Other Therapeutic Substance into Mouth and Pharynx, External Approach (ICD-10-PCS; 2024-11-04)
PROC: 0HQ9XZZ Repair Perineum Skin, External Approach (ICD-10-PCS; 2024-11-04)
PROC: 3E0R3BZ Introduction of Anesthetic Agent into Spinal Canal, Percutaneous Approach (ICD-10-PCS; 2024-11-04)
PROC: 00HU33Z Insertion of Infusion Device into Spinal Canal, Percutaneous Approach (ICD-10-PCS; 2024-11-04)
DX: O14.94 Unspecified pre-eclampsia, complicating childbirth (principal); Z37.0 Single live birth; E66.01 Morbid (severe) obesity due to excess calories; O69.81X0 Labor and delivery complicated by cord around neck, without compression, not applicable or unspecified; O70.0 First degree perineal laceration during delivery; O99.214 Obesity complicating childbirth; Z3A.39 39 weeks gestation of pregnancy
CPT/HCPCS: 36415; 59025; 59409; 62282; 80048; 80053; 80307; 81001; 82570; 83735; 84156; 84439; 84443; 84481; 84550; 85025; 85610; 85730; 86592; 86780; 86803; 86850; 86900; 86901; 93306; 94760; 94762; 96360; 96361; 96365; 96366; G0378; J2590

== ENCOUNTER 2024-12-17 15:44 | Emergency (ER) | payer MEDICAID ==
[~2024-12-17] VITALS: Ht 157.5 cm; Wt 95.2 kg
[~2024-12-17 15:44] MED LIST changes: -CEPH500T PO
[2024-12-17 15:56] VITALS: BP 120/73; PULSE 118; RESP 17; TEMP 98.1; O2SAT 99
[2024-12-17] MEDS: KETOROLAC TROMETH 60MG/2ML VIAL IM ONE (16:01)
[2024-12-17] MEDS ORDERED: IBUP-1456 PO (16:24)
[2024-12-17] MEDS ORDERED: METH-1182 PO (16:24)
--- NOTE | 2024-12-17 16:25 | ED.PDOC ---
Back pain HPI HPI Comments A 29 YEAR OLD FEMALE PRESENTS TO THE ED WITH CHIEF COMPLAINT OF LOWER BACK PAIN. PATIENT REPORTS THAT SHE HAS BEEN EXPERIENCING LOWER BACK PAIN FOR THE PAST 4 DAYS. PATIENT RELAYS THAT SHE HAS BEEN NEEDING TO LIFT UP HER BABY'S CAR SEAT A LOT LATELY AND HER PAIN STARTED AFTER LIFTING IT 4 DAYS AGO. PATIENT DENIES ANY NUMBNESS, WEAKNESS, FALL, NECK PAIN, OR INJURY. NO OTHER SYMPTOMS REPORTED AT THIS TIME OF CARE. Chief Complaint: Back Pain Time Seen by MD: 15:58 Reviewed Notes: Nurses Notes, Medications, Allergies Allergies: Coded Allergies: NO KNOWN ALLERGIES (Unverified , 08/04/24) Home Meds Active Scripts Methocarbamol (Methocarbamol) 750 Mg Tab, 750 MG PO BID, #20 TAB Prov:GABY DELACRUZ 12/17/24 Ibuprofen (Ibuprofen) 800 Mg Tab, 1 TAB PO TID, #30 TAB Prov:GABY DELACRUZ 12/17/24 Reported Medications Vit W/ Ferrous Fumara ( One Daily) Daily Tab, 1 TAB PO DAILY, #90 TAB 3 Refills 10/01/24 Information Source: Patient Mode of Arrival: Ambulatory Timing: Hours Duration: Since onset Location of Back pain: (B) Lower back Severity: Moderate Prehospital treatment: None Quality: Aching Onset: Bending, Lifing History of: None Modifying Factors: Nothing Associated signs and symptoms: None Past Medical History PAST MEDICAL HISTORY: Denies Surgical History: Denies all surgeries RUBBER [employer] POUNDER History: Denies all RUBBER AND POUNDER Hx Family History Family History: Reviewed,noncontributory to illness Social History Smoker: Non-Smoker Alcohol: Denies ETOH Use Drugs: Denies Drug Use Lives In: Home Constitutional: denies: chills, diaphoresis, fatigue, fever, malaise, sweats, weakness, others EENTM: denies: blurred vision, double vision, ear bleeding, ear discharge, ear drainage, ear pain, ear ringing, eye pain, eye redness, hearing loss, mouth pain, mouth swelling, nasal discharge, nose bleeding, nose congestion, nose pain, photophobia, tearing, throat pain, throat swelling, voice changes, others Respiratory: denies: cough, hemoptysis, orthopnea, SOB at rest, shortness of breath, SOB with excertion, stridor, wheezing, others Cardiovascular: denies: chest pain, dizzy spells, diaphoresis, Dyspnea on exertion, edema, irregular heart beat, left arm pain, lightheadedness, palpitations, PND, syncope, others Gastrointestinal: denies: abdomen distended, abdominal pain, blood streaked bowels, constipated, diarrhea, dysphagia, difficulty swallowing, hematemesis, melena, nausea, poor appetite, poor fluid intake, rectal bleeding, rectal pain, vomiting, others Genitourinary: denies: abnormal vagina bleeding, burning, dyspareunia, dysuria, flank pain, frequency, hematuria, incontinence, pain, , vagina discharge, urgency, others Neurological: denies: dizziness, fainting, headache, left sided numbness, left sided weakness, numbness, paresthesia, pre-existing deficit, right sided numbness, right sided weakness, seizure, speech problems, tingling, tremors, we akness, others Musculoskeletal: reports: back pain, muscle pain; denies: gout, joint pain, joint swelling, muscle stiffness, neck pain, others Integumetry: denies: bruises, change in color, change in hair/nails, dryness, laceration, lesions, lumps, rash, wounds, others Allergic/Immunocompromised: denies: Difficulty Healing, Frequent Infections, Hives, Itching, others Hematologic/Lymphatic: denies: anemia, blood clots, easy bleeding, easy bruising, swollen glands, others Endocrine: denies: excessive hunger, excessive sweating, excessive thirst, excessive urination, flushing, intolerance to cold, intolerance to heat, unexplained weight gain, unexplained weight loss, others Psychiatric: denies: anxiety, bipolar disorder, depression, hopeless, panic disorder, schizophrenia, sleepless, suicidal, others All Other Systems: Reviewed and Negative Physical Exam General Appearance: No Apparent Distress, Obese HEENT: Normal ENT Inspection, PERRL/EOMI Neck: Full Range of Motion, Non-Tender, Normal, Normal Inspection Respiratory: Chest Non-Tender, Lungs Clear, No Accessory Muscle Use, No Respiratory Distress, Normal Breath Sounds Cardiovascular: No Edema, No JVD, No Murmur, No Gallop, Normal Peripheral Pulses, Regular Rate/Rhythm Breast Exam: Deferred Gastrointestinal: No Organomegaly, Non Tender, No Pulsatile Mass, Normal Bowel Sounds, Soft Genitalia: Deferred Pelvic: Deferred Rectal: Deferred Extremities: No calf tenderness, Normal capillary refill, Normal inspection, Normal range of motion, Non-tender, No pedal edema Musculoskeletal : Location: Bilateral Extremity Location: Back Apperance: Tenderness: Moderate (MUSCLE SPASM ON LOWER BACK, NO BONY TENDERNESS, SWELLING AND DEFORMITY. ) Neurologic: Alert, canteen attendant II-XII nml as Tested, No Motor Deficits, Normal Affect, Normal Mood, No Sensory Deficits Cerebellar Function: Normal Reflexes: Normal Skin: Dry, Normal Color, Warm Peripheral Pulses: 2+ carotid (R), 2+ carotid (L) Lymphatic: No Adenopathy Was a procedure done? Was a procedure done?: No Back Pain Differential Dx Differential Diagnosis: Musculoskeletal Pain, Strain X-Ray, Labs, Meds, VS Vital Signs Date Time Temp Pulse Resp B/P (MAP) Pulse Ox O2 Delivery O2 Flow Rate FiO2 12/17/24 15:56 118 17 99 Room Air 12/17/24 15:56 98.1 118 17 120/73 (89) 99 98.1 12/17/24 15:53 98.1 118 17 120/73 (89) 99 Current Medications Medications (Trade) Dose Ordered Sig/Dali Route Start Time Stop Time Status Last Admin Ketorolac Tromethamine (Toradol Injection) 60 mg ONCE ONCE IM 12/17/24 16:00 12/17/24 16:01 DC 12/17/24 16:01 X-Ray, Labs, Meds, VS Comment EXTERNAL MEDICAL RECORDS REVIEWED: 11/03/24 FOR DELIVERY OF BABY INDEPENDENT HISTORIANS: [NONE] SOCIAL DETERMINANTS OF HEALTH: [NONE] LABS ORDERED: NONE REVIEWED AND INTERPRETED RESULTS: NONE IMAGING ORDERED: NONE TREATMENTS ORDERED: TORADOL 60MG IM PROCEDURES PERFORMED: NONE CRITICAL CARE TIME: NONE I HAVE DISCUSSED THE PATIENT WITH THE ATTENDING PHYSICIAN DR. ZAYAS AND HE AGREES WITH THE PATIENT'S PLAN OF CARE AND DISPOSITION. GIVEN THE HISTORY AND PRESENT ILLNESS OF THE PATIENT, AFTER REVIEWING LABS, IMAGING, AND COURSE OF TREATMENT ADMINISTERED DURING THEIR ED VISIT, THERE IS LOW SUSPICION FOR RED FLAG FINDINGS. BASED ON HISTORY OF PRESENT ILLNESS, AND PHYSICAL EXAM, PATIENT WILL BE DISCHARGED HOME. DISCUSSED PLAN FOR DISCHARGE HOME WITH RX IBUPROFEN AND ROBAXIN. MEDICATION WARNINGS GIVEN. SHARED DECISION MAKING: DISCUSSED WITH PATIENT THAT THEIR WORKUP WAS NORMAL. PATIENT INSTRUCTED TO FOLLOW UP WITH PRIMARY CARE PROVIDER IN 1-2 DAYS FOR RE- EVALUATION OF SYMPTOMS. PATIENT VERBALIZES UNDERSTANDING TO RETURN TO ED FOR NEW OR WORSENING SYMPTOMS OR IF FOLLOW UP WITH PCP CANNOT BE OBTAINED. PATIENT FEELS COMFORTABLE GOING HOME AT THIS TIME. ALL QUESTIONS ADDRESSED AT TIME OF DISCHARGE. Time of 1ST Reevaluation: 16:27 Reevaluation 1ST: Improved Patient Education/Counseling: Diagnosis, Treatment Family Education/Counseling: Diagnosis, Treatment, No Family Present Medical Screening: No EMC Exist At This Time Departure 1 Departure Time of Disposition: 16:40 Impression: Primary Impression: Low back strain Qualified Codes: S39.012A - Strain of muscle, fascia and tendon of lower back, initial encounter Disposition: HOME / SELF CARE / HOMELESS Condition: Stable Additional Instructions: FOLLOW-UP WITH PCP IN 1 TO 2 DAYS. TAKE MEDICATIONS PRESCRIBED. RETURN TO ED FOR ANY NEW OR WORSENING SYMPTOMS. e-Prescriptions Methocarbamol (Methocarbamol) 750 Mg Tab 750 MG PO BID, #20 TAB Prov: GABY DELACRUZ 12/17/24 Ibuprofen (Ibuprofen) 800 Mg Tab 1 TAB PO TID, #30 TAB Prov: GABY DELACRUZ 12/17/24 Discharged With: Self Critical Care Note Critical Care Time?: No Stability Stability form required: No Heart Score Heart Score: Heart Score Response (Comments) Value History N/A 0 EKG N/A 0 Age N/A 0 Risk Factors N/A 0 Troponin N/A 0 Total 0 I personally scribed for GABY DELACRUZ ([email or web address]) on 12/17/24 at 16:25. Electronically submitted by Heri Bucio ([email or web address]). GABY DELACRUZ Dec 17, 2024 16:25
== END 2024-12-17 16:32 | disposition home or self-care (01) ==
LOC: ER 15:44
DX: S39.012A Strain of muscle, fascia and tendon of lower back, initial encounter (principal); Z79.1 Long term (current) use of non-steroidal anti-inflammatories (NSAID); Z79.899 Other long term (current) drug therapy; X50.0XXA Overexertion from strenuous movement or load, initial encounter; Y93.89 Activity, other specified; Y92.89 Other specified places as the place of occurrence of the external cause; Y99.8 Other external cause status
CPT/HCPCS: 96372; 99283; J1885